=== PATIENT | female | born 1960 | race Caucasian/White ===

== ENCOUNTER 2016-05-24 14:04 | Emergency (ER) | payer BC ==
--- NOTE | 2016-05-24 14:39 | ED ---
General Adult HPI - General Chief complaint: Head Injury Stated complaint: Fall/Head injury Time Seen by Provider: 05/24/16 14:29 Source: patient, RN notes reviewed Mode of arrival: ambulatory Limitations: no limitations - History of Present Illness Initial comments: This is a 56 old female who presents after a fall that happened around 11 PM. Patient states she was intoxicated and tripped in her kitchen landing on her face. Patient reported some increased swelling and an abrasion to the forehead after the fall. Patient denies any loss of consciousness. Patient states she woke up the next morning with some nausea but thought it was from the alcohol the previous night before. Patient states the nausea has persisted with a mild headache over the weekend into today. Patient also reports some dizziness today. Patient describes dizziness as room spinning and mostly happens with head movements. Rest makes the dizziness better. Patient has a history of vertigo. Patient states she always has some degree of nausea but was concerned due to head injury. 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 Patient noticed some bruising around the right eye that started on Tuesday. Patient denies any pain with extraocular movements or eye pain. Patient has been ambulating without difficulty. Patient states she has chronic neck pain and is unsure if it is worse. Patient denies any back pain. Patient is not on any anticoagulants. Patient denies any recent fever, chills, shortness breath, chest pain, abdominal pain, nausea/vomiting/diarrhea, numbness, tingling, hematuria, or visual changes, or any other complaints. - Related Data Previous Rx's Medication Instructions Recorded Hydrocodone/Acetaminophen [[place] 1 each PO Q6HR PRN #20 tab 07/27/14 5-325] Allergies Allergy/AdvReac Type Severity Reaction Status Date / Time No Known Allergies Allergy Verified 05/24/16 14:16 Review of Systems ROS Statement: Those systems with pertinent positive or pertinent negative responses have been documented in the HPI. ROS Other: All systems not noted in ROS Statement are negative. Past Medical History Past Medical History: No Reported History History of Any Multi-Drug Resistant Organisms: None Reported Past Surgical History: Appendectomy, Uterine Ablation Additional Past Surgical History / Comment(s): bowel resection, Past Psychological History: No Psychological Hx Reported Smoking Status: Never smoker Past Alcohol Use History: None Reported Past Drug Use History: None Reported General Exam - General Exam Comments Initial Comments: General: The patient is awake and alert, in no distress, and does not appear acutely ill. Eye: There is some mild ecchymosis surrounding the right eye that is tender to palpation along the lower aspect of the orbit and to the lateral aspect of the nose. Pupils are equal, round and reactive to light, extra-ocular movements are intact. No pain with extraocular movements. No sign of entrapment. No nystagmus. There is normal conjunctiva bilaterally. No signs of icterus. Visual acuity is 20/20 in both eyes, 20/30 in the right eye and 20/25 in the left eye. Ears: TMs pink and pearly with intact cone of light bilaterally. Normal external ear canals Nose: Nasal turbinates pink and moist. No septal hematoma. Mouth and throat: There are moist mucous membranes and no oral lesions. Neck: There is mild tenderness of the cervical midline, patient reports this can be chronic for her. The neck is supple, there is no JVD. Cardiovascular: There is a regular rate and rhythm. No murmur, rub or gallop is appreciated. Respiratory: Lungs are clear to auscultation, respirations are non-labored, breath sounds are equal. No wheezes, stridor, rales, or rhonchi. Musculoskeletal: No tenderness to palpation of the thoracic or lumbar midlines. Normal ROM, no tenderness. Strength 5/5. Sensation intact. Residential Plumber strength equal bilaterally. Radial Pulses equal bilaterally 2+. Neurological: A&O x 3. CN II-XII intact, There are no obvious motor or sensory deficits. Coordination appears grossly intact. Speech is normal. Skin: There is an approximately 1 cm abrasion to the patient's middle forehead. No bruising or swelling around the area. Skin is warm and dry and no rashes or lesions are noted. Psychiatric: Cooperative, appropriate mood & affect, normal judgment. Limitations: no limitations Course Vital Signs 05/24/16 05/24/16 14:12 15:07 Temperature 97.4 F L 96.9 F L Pulse Rate 70 74 Respiratory 18 16 Rate Blood Pressure 169/79 134/70 O2 Sat by Pulse 98 100 Oximetry Medical Decision Making - Medical Decision Making This is a 56-year-old female presents after a fall that happened night while she was intoxicated. On physical exam patient is neurologically intact and ambulate without difficulty. Patient is answering all questions appropriately and accurately.There is some mild ecchymosis surrounding the right eye that is tender to palpation along the lower aspect of the orbit and to the lateral aspect of the nose. Pupils are equal, round and reactive to light, extra-ocular movements are intact. No pain with extraocular movements. No sign of entrapment. No nystagmus. There is normal conjunctiva bilaterally. No signs of icterus. Visual acuity is 20/20 in both eyes, 20/30 in the right eye and 20/25 in the left eye. Patient has some mild cervical midline tenderness. I discussed the risks and benefits of computed tomography scan. At this time patient is still having some nausea, dizziness and headache from the fall on . A CT of the brain and C-spine and facial bones: CT brain and C-spine: #1 there is no acute fracture or dislocation evident in the cervical spine. #2 no acute intracranial hemorrhage, mass effect, or midline shift seen. Additional findings above. Posterior ventricular white matter show some low attenuation possible due to demyelination. Brain MRI may be of benefit. Reported by Dr. Ayala. CT facial bones: Soft tissue edema on the right periorbital region with no acute fracture. Report by Dr. Bradford. I discussed results with patient. I discussed that patient should follow-up with her family physician for a possible outpatient brain MRI. I offered patient a prescription for Antivert due to dizziness but patient refused this stating she is feeling fine. I discussed Tylenol and or Motrin as needed for any pain. I discussed return parameters. I discussed concussion symptoms and the avoidance of activities that worsen her symptoms. Discussed that patient should follow up with PCP in one to 2 days or return to the [facility] for any worsening symptoms or for any further concerns. Patient was receptive to this plan and patient will be discharged home. I discussed his case with attending physician Dr. Redman who agrees the plan as stated above. Disposition Clinical Impression: Head injury Disposition: HOME SELF-CARE Condition: Good Instructions: Concussion (ED) Additional Instructions: Please use [id number] Tylenol and Motrin as needed for any pain. Please follow-up with your primary care physician for an outpatient MRI of the brain. Please return to the [facility] for any worsening symptoms or for any further concerns. Referrals: Jose Alberto Jain III, MD [Primary Care Provider] - 1-2 days Time of Disposition: 15:42
[2016-05-24 15:08] VITALS: BP 134/70; PULSE 74; RESP 16; TEMP 96.9
--- NOTE | 2016-05-24 15:20 | CT ---
EXAMINATION TYPE: CT brain aveine wo con DATE OF EXAM: 05/24/2016 2:59 PM COMPARISON: NONE HISTORY: Pt fell x4 days ago, swelling to right orbital area. CT DLP: 1956.4 mGycm Automated exposure control for dose reduction was used. TECHNIQUE: CT scan of the head and cervical spine are performed without contrast. FINDINGS: There is no acute intracranial hemorrhage, mass effect, or midline shift identified. The ventricles and sulci are within normal limits in size. Periventricular white matter shows some low a ttenuation possibly due to demyelination. The globes are intact and the visualized sinuses are clear. Cervical spine is visualized in its entirety from C1 through upper thoracic levels and demonstrates s atisfactory alignment without evidence of acute fracture or dislocation. Prevertebral soft tissue ap pears within normal limits. The C1-C2 articulation is unremarkable. IMPRESSION: 1. There is no acute fracture or dislocation evident in the cervical spine. 2. No acute intracranial hemorrhage, mass effect, or midline shift is seen. Additional findings above . Brain MRI may be of benefit.
--- NOTE | 2016-05-24 15:20 | CT ---
EXAMINATION TYPE: CT facial bones wo con DATE OF EXAM: 05/24/2016 2:59 PM COMPARISON: NONE HISTORY: Pt fell x4 days ago, swelling to right orbital area. CT DLP: 1956.4 mGycm Automated exposure control for dose reduction was used. TECHNIQUE: CT scan of the sinuses is performed without contrast, axial images are obtained, coronal r eformatted images are also reviewed. FINDINGS: Exam limited by dental artifact. The paranasal sinuses including the frontal, ethmoid, sphenoid, and maxillary sinuses bilaterally ar e well-aerated without abnormal opacification. The ostiomeatal complex is patent bilaterally on the coronal images. Visualized portion of mastoid air cells show no abnormal opacification. The globes are intact bilate rally. A nasal septal deviation is seen and there are bilateral corrina bullosa greater on the right. IMPRESSION: 1. Soft tissue edema in the right periorbital region with no acute fracture.
== END 2016-05-24 15:59 | disposition home or self-care (01) ==
LOC: EC 14:04
DX: S06.0X0A Concussion without loss of consciousness, initial encounter (principal); S00.83XA Contusion of other part of head, initial encounter; R42 Dizziness and giddiness; M54.2 Cervicalgia; W01.0XXA Fall on same level from slipping, tripping and stumbling without subsequent striking against object, initial encounter; Y92.000 Kitchen of unspecified non-institutional (private) residence as the place of occurrence of the external cause
CPT/HCPCS: 70450; 70486; 72125; 99283

== ENCOUNTER → 2016-06-15 | Outpatient (CLI) | payer BC ==
--- NOTE | 2016-06-15 18:18 | MR ---
EXAMINATION TYPE: MR brain wo con DATE OF EXAM: 06/15/2016 2:18 PM COMPARISON: CT brain 05/24/2016 HISTORY: abnormal ct, f/u CONTRAST: Performed utilizing 0 mL intravenous MultiHance gadolinium contrast. TECHNIQUE: Multiplanar, multiecho imaging on a 3.0 Racheal magnet is performed through the brain. Stud y is performed within 24 hours of arrival to the hospital. The craniovertebral junction is normal. The pituitary is normal. Diffusion-weighted imaging is performed. No abnormal hyperintensity is present to suggest an acute i ntracranial infarct or acute ischemic change. Periventricular white matter hyperintensity is present . Scattered punctate white matter changes are present. A larger focal plaque measuring 1.6 x 1.7 cm adjacent to the anterior horn left lateral vent ricle. Findings were present previously. Post trauma sequences are performed. No suspicious area for hemorrhage is evident. Ventricles and sulci are appropriate for the patient age. IMPRESSIONS: 1. Chronic appearing white matter ischemic changes, stable from prior CT
== END | disposition home or self-care (01) ==
LOC: RADMRIMAIN 13:31
PROVIDERS: ATTEND Nurse Practitioner Family
DX: R90.82 White matter disease, unspecified (principal); I67.82 Cerebral ischemia
CPT/HCPCS: 70551

== ENCOUNTER → 2016-10-25 | Outpatient (CLI) | payer BC ==
[2016-10-25 09:59] LABS: Basophils # (A) 0.1 k/uL (0-0.2); Basophils % (A) 1 %; CH 32.7; CHCM 34.4; Eosinophils # (A) 0.1 k/uL (0-0.7); Eosinophils % (A) 2 %; HCT 39.2 % (34.0-46.0); HDW 2.25; HGB 13.5 gm/dL (11.4-16.0); Luc # (Auto) 0.07; Luc % (Auto) 2; Lymphocytes # (A) 1.9 k/uL (1.0-4.8); Lymphocytes % (A) 39 %; MCH 32.9 pg (25.0-35.0); MCHC 34.5 g/dL (31.0-37.0); MCV 95.2 fL (80.0-100.0); Mean Platelet Volume 7.6; Monocytes # (A) 0.3 k/uL (0-1.0); Monocytes % (A) 6 %; Neutrophils # (A) 2.5 k/uL (1.3-7.7); Neutrophils % (A) 51 %; RBC 4.11 m/uL (3.80-5.40); RDW 12.3 % (11.5-15.5); WBC 4.9 k/uL (3.8-10.6); WBC (Perox) 5.35
[2016-10-25 20:24] LABS: Appearance,CSF Clear
== END | disposition home or self-care (01) ==
LOC: LABWHC1 09:31
PROVIDERS: ATTEND Physician Assistant
DX: R90.82 White matter disease, unspecified (principal)
CPT/HCPCS: 36415; 82040; 82042; 82306; 82784; 83873; 83916; 84157; 85025; 87476; 89050

== ENCOUNTER → 2016-12-27 | Outpatient (CLI) | payer BC ==
[2016-12-27 19:19] LABS: Blood Urea Nitrogen 22 mg/dL (7-17); Non-African American GFR(MDRD) 58 (>60 ml/min/1.73 sqM)
--- NOTE | 2016-12-27 23:18 | MR ---
EXAMINATION TYPE: MR brain/cspine wo/w DATE OF EXAM: 12/27/2016 COMPARISON: Prior MRI brain June 15, 2016. Prior CT cervical spine May 24, 2016. HISTORY: Headaches, dizziness, neck pain, checking for MS TECHNIQUE: Multiplanar, multisequence images of the cervical spine, brain, and brainstem are all performed with out and with IV contrast, utilizing 6.5 mL intravenous Gadavist gadolinium contrast is administered i ntravenously. Demyelinating disease protocol with additional Sagittal Flair sequence performed of th e brain and brainstem and PD sagittal sequence of cervical spine acquired.. FINDINGS: BRAIN: T2 Lesions Present : Yes Approximate Number of Lesions: Approximately 30 Locations Identified : Most prominent deep and periventricular levels Size of Reference Lesion(s): 1. 1.7 cm x 1.4 cm x 1.5 cm on axial image 21 and sagittal image 10 left frontal centrum semioval pe riventricular lesion stable. Enhancing Lesion(s) Present: No Change from Prior: Stable Diffusion weighted images demonstrate no evidence of a recent infarct or other diffusion abnormality. There is no worrisome extra-axial fluid collection. The ventricular system and cisternal spaces ar e normal in size and appearance. The brain volume is age appropriate. Midline structures demonstrate normal morphology. The craniocervical junction appears within normal limits. Post contrast images demonstrate no abnormal enhancement. The dural venous sinuses appear pa tent. The visualized sinuses are clear and the globes are intact. IMPRESSION: Fairly moderate nonspecific white matter changes may be on basis of multiple sclerosis am tami possible broad differential. No new or enhancing lesions are clearly seen. C-SPINE: FINDINGS: Sagittal images of the cervical spine show the craniocervical junction to appear within nor mal limits. The cervical and upper thoracic spinal cord is normal in course, caliber, and signal. V ertebral alignment is anatomic. There is mild disc space narrowing posteriorly at C4-C5 level otherwi se the vertebral body and intravertebral disk heights are normal. There are small posterior disc her niation at C4-C5 level on sagittal images. The bone marrow signal intensity is within normal limits. No abnormal postcontrast enhancement is seen. Minimal multilevel anterior spurring is redemonstrated. No suspicious postcontrast enhancement is seen. Axial images show the a C2-C3 level to appear within normal limits. Axial images at C3-C4 level show right paracentral disc protrusion and uncovertebral facet degenerati ve changes bilaterally, there is mild right greater than left bilateral neural foraminal narrowing an d minimal effacement of anterior lateral thecal sac on axial image 37. Axial images at C4-C5 level show more lobulated broad-based posterior disc protrusion effacing anteri or thecal sac and causing mild to moderate bilateral neural foraminal narrowing. Axial images at C5-C6 level, C6-C7, C7-T1 levels are felt within normal limits. There is 4 mm left thyroid nodule on axial image 1 incidentally noted. IMPRESSION: No abnormal cord signal in the cervical spine. Some degenerative changes at C3-C4 and C4- C5 level are seen as detailed above.
== END | disposition home or self-care (01) ==
LOC: RADMRIMAIN 18:40
PROVIDERS: ATTEND Physician Assistant
DX: M47.812 Spondylosis without myelopathy or radiculopathy, cervical region (principal); R90.89 Other abnormal findings on diagnostic imaging of central nervous system; Z01.812 Encounter for preprocedural laboratory examination
CPT/HCPCS: 82565; 84520; 70553; 72156; 36415; A9581

== ENCOUNTER → 2018-03-29 | Outpatient (CLI) | payer BC ==
--- NOTE | 2018-03-29 09:18 | MM ---
Reason for exam: clinical finding. Last mammogram was performed 13 years and 8 months ago. Indicated problem(s): lump or thickening in the right breast. Physical Findings: Nurse did not find any significant physical abnormalities on exam. MG 3D Diag Mammo W/Cad LILY Bilateral CC and MLO view(s) were taken. Prior study comparison: July 30, 2004, bilateral screening mammogram. June 14, 2003, bilateral screening mammogram. The breast tissue is extremely dense which could obscure a lesion on mammography. There is no discrete abnormality. These results were verbally communicated with the patient and result sheet given to the patient on 03/29/18. ASSESSMENT: Incomplete: need additional imaging evaluation, BI-RAD 0 RECOMMENDATION: Ultrasound of the right breast. (palpable by patient)
--- NOTE | 2018-03-29 09:20 | USB ---
Reason for exam: additional evaluation requested from abnormal screening. US Breast Limited RT Right limited breast ultrasound including focal area of concern, retroareolar and axilla demonstrates no cystic or solid lesion seen. These results were verbally communicated with the patient and result sheet given to the patient on 03/29/18. ASSESSMENT: Negative, BI-RAD 1 RECOMMENDATION: Routine screening mammogram of both breasts in 1 year. Manage patient on a clinical basis.
== END ==
LOC: RADMAMWWP 08:04
PROVIDERS: ATTEND Obstetrics & Gynecology
DX: N63.10 Unspecified lump in the right breast, unspecified quadrant (principal); N63.20 Unspecified lump in the left breast, unspecified quadrant; R92.8 Other abnormal and inconclusive findings on diagnostic imaging of breast
CPT/HCPCS: 77062; 77066

== ENCOUNTER → 2018-07-27 | Outpatient (CLI) | payer BC ==
--- NOTE | 2018-07-28 07:30 | MR ---
EXAMINATION TYPE: MR brain wo/w con DATE OF EXAM: 07/27/2018 COMPARISON: CT brain 05/24/2016 HISTORY: dizziness and giddiness CONTRAST: Performed utilizing 7 mL intravenous Gadavist gadolinium contrast. TECHNIQUE: Multiplanar, multiecho imaging on a 3.0 Racheal magnet is performed through the brain. Stud y is performed within 24 hours of arrival to the hospital. The craniovertebral junction is normal. The pituitary is normal. Diffusion-weighted imaging is performed. No abnormal hyperintensity is present to suggest an acute i ntracranial infarct or acute ischemic change. There are multiple scattered areas of hyperintensity on T2 and inversion recovery weighted sequences. The largest white matter change is in the left frontal lobe adjacent to the anterior horn lateral marla tricle and measures approximately 1.9 x 1.5 cm x 1.6. Series 501 image 20, series 601 image 13. Multi ple additional subcortical and deep white matter hyperintensities are present. Ventricles and sulci are appropriate for the patient age. No abnormal enhancement is evident. Pituitary stalk is in the midline. Corpus callosum appears normal. Some faint increased signals withi n the brainstem on T2 and inversion recovery sequences IMPRESSIONS: 1. Findings can be compatible with, although are not diagnostic for, multiple sclerosis. Differential diagnosis would include microvascular ischemic change, Lyme disease, vasculitis. 2. No suspicious acute areas of gliosis are identified.
== END | disposition home or self-care (01) ==
LOC: RADMRIMAIN 15:04
PROVIDERS: ATTEND Family Medicine
DX: R42 Dizziness and giddiness (principal); A88.1 Epidemic vertigo; R90.82 White matter disease, unspecified
CPT/HCPCS: 70553; A9585

== ENCOUNTER 2018-08-14 12:53 | Inpatient (IN) | payer BC ==
[2018-08-14] MEDS ORDERED: SODIUM CHLORIDE 0.9% 1,000 ML IV STA (13:37)
--- NOTE | 2018-08-14 13:37 | ED ---
Dizziness HPI - General Chief Complaint: Syncope Stated Complaint: vision problem, tingling, dizziness Time Seen by Provider: 08/14/18 13:26 Source: patient, family, RN notes reviewed, old records reviewed Mode of arrival: ambulatory Limitations: no limitations - History of Present Illness Initial Comments: This is a 58-year-old female the ER for evaluation. She presents today for evaluation regards to neurological complaint. Patient does have significant neurological complaint currently. His main neuro complaints resolve around blurry vision difficulty vision dizziness lightheadedness and bilateral upper extremity weakness and heaviness. Patient has history of similar complaint possibly going out for diagnosis of MS. MD Complaint: dizziness, lightheadedness, difficulty walking -: minutes(s) Timing: sudden onset Description: "room spinning", lightheadedness History of Same: Yes History of Trauma: No Severity: moderate Improves With: nothing Worsens With: nothing - Related Data Home Medications Medication Instructions Recorded Confirmed ALPRAZolam [Xanax] 0.5 mg PO DAILY PRN 08/14/18 08/14/18 Acetaminophen [Tylenol Arthritis] 1,300 mg PO Q12H PRN 08/14/18 08/14/18 Cholecalciferol [Vitamin D3 (25 1,000 unit PO DAILY 08/14/18 08/14/18 Mcg = 1000 Iu)] DULoxetine HCL [Cymbalta] 30 mg PO BID 08/14/18 08/14/18 Ranitidine HCl [Zantac] 150 mg PO DAILY 08/14/18 08/14/18 amLODIPine [Norvasc] 2.5 mg PO DAILY 08/14/18 08/14/18 Allergies Allergy/AdvReac Type Severity Reaction Status Date / Time No Known Allergies Allergy Verified 08/14/18 13:49 Review of Systems ROS Statement: Those systems with pertinent positive or pertinent negative responses have been documented in the HPI. ROS Other: All systems not noted in ROS Statement are negative. Past Medical History Past Medical History: No Reported History History of Any Multi-Drug Resistant Organisms: None Reported Past Surgical History: Appendectomy, Uterine Ablation Additional Past Surgical History / Comment(s): bowel resection, Past Psychological History: No Psychological Hx Reported Smoking Status: Never smoker Past Alcohol Use History: None Reported Past Drug Use History: None Reported General Exam - General Exam Comments Initial Comments: NIH of 0 Limitations: no limitations General appearance: alert, in no apparent distress Head exam: Present: atraumatic, normocephalic, normal inspection Eye exam: Present: normal appearance, PERRL, EOMI. Absent: scleral icterus, conjunctival injection, periorbital swelling ENT exam: Present: normal exam, mucous membranes moist Neck exam: Present: normal inspection. Absent: tenderness, meningismus, lymphadenopathy Respiratory exam: Present: normal lung sounds bilaterally. Absent: respiratory distress, wheezes, rales, rhonchi, stridor Cardiovascular Exam: Present: regular rate, normal rhythm, normal heart sounds. Absent: systolic murmur, diastolic murmur, rubs, gallop, clicks GI/Abdominal exam: Present: soft, normal bowel sounds. Absent: distended, tenderness, guarding, rebound, rigid Extremities exam: Present: normal inspection, full ROM, normal capillary refill. Absent: tenderness, pedal edema, joint swelling, calf tenderness Back exam: Present: normal inspection Neurological exam: Present: alert, oriented X3, CN II-XII intact Psychiatric exam: Present: normal affect, normal mood Skin exam: Present: warm, dry, intact, normal color. Absent: rash Course Vital Signs 08/14/18 08/14/18 08/14/18 12:58 14:15 16:00 Temperature 98.4 F 98.1 F Pulse Rate 69 66 67 Respiratory 18 16 16 Rate Blood Pressure 167/78 166/84 134/67 O2 Sat by Pulse 100 97 96 Oximetry - Reevaluation(s) Reevaluation #1: 08/14/18 16:42 Medical record is reviewed include prior MRIs Reevaluation #2: 08/14/18 16:42 Patient will admit for neurological evaluation EKG Findings - EKG Comments: EKG Findings:: EKG shows sinus rhythm at 65, VA 1:30, QRS 90, QTc 468 Medical Decision Making - Medical Decision Making 58 male the ER for evaluation presented for evaluation of neurological evaluation. Patient will admit for neurology. - Lab Data Result diagrams: 08/14/18 14:10 08/14/18 14:10 Lab Results 08/14/18 08/14/18 08/14/18 Range/Units 14:10 14:10 14:10 WBC (3.8-10.6) k/uL RBC (3.80-5.40) m/uL Hgb (11.4-16.0) gm/dL Hct (34.0-46.0) % MCV (80.0-100.0) fL MCH (25.0-35.0) pg MCHC (31.0-37.0) g/dL RDW (11.5-15.5) % Plt Count (150-450) k/uL Neutrophils % % Lymphocytes % % Monocytes % % Eosinophils % % Basophils % % Neutrophils # (1.3-7.7) k/uL Lymphocytes # (1.0-4.8) k/uL Monocytes # (0-1.0) k/uL Eosinophils # (0-0.7) k/uL Basophils # (0-0.2) k/uL D-Dimer 0.30 (<0.60) mg/L FEU Sodium 140 (137-145) mmol/L Potassium 3.3 L (3.5-5.1) mmol/L Chloride 105 (98-107) mmol/L Carbon Dioxide 27 (22-30) mmol/L Anion Gap 8 mmol/L BUN 16 (7-17) mg/dL Creatinine 0.73 (0.52-1.04) mg/dL Est GFR (CKD-EPI)AfAm >90 (>60 ml/min/1.73 sqM) Est GFR (CKD-EPI)NonAf >90 (>60 ml/min/1.73 sqM) Glucose 91 (74-99) mg/dL Calcium 9.8 (8.4-10.2) mg/dL Phosphorus 2.8 (2.5-4.5) mg/dL Magnesium 2.0 (1.6-2.3) mg/dL Total Bilirubin 0.7 (0.2-1.3) mg/dL AST 80 H (14-36) U/L ALT 82 H (9-52) U/L Alkaline Phosphatase 101 (38-126) U/L Troponin I (0.000-0.034) ng/mL NT-Pro-B Natriuret Pep 223 pg/mL Total Protein 7.8 (6.3-8.2) g/dL Albumin 4.8 (3.5-5.0) g/dL TSH 1.040 (0.465-4.680) mIU/L 08/14/18 08/14/18 Range/Units 14:10 14:10 WBC 5.3 (3.8-10.6) k/uL RBC 4.17 (3.80-5.40) m/uL Hgb 13.5 (11.4-16.0) gm/dL Hct 39.4 (34.0-46.0) % MCV 94.4 (80.0-100.0) fL MCH 32.5 (25.0-35.0) pg MCHC 34.4 (31.0-37.0) g/dL RDW 12.6 (11.5-15.5) % Plt Count 301 (150-450) k/uL Neutrophils % 57 % Lymphocytes % 35 % Monocytes % 5 % Eosinophils % 1 % Basophils % 1 % Neutrophils # 3.0 (1.3-7.7) k/uL Lymphocytes # 1.8 (1.0-4.8) k/uL Monocytes # 0.2 (0-1.0) k/uL Eosinophils # 0.1 (0-0.7) k/uL Basophils # 0.0 (0-0.2) k/uL D-Dimer (<0.60) mg/L FEU Sodium (137-145) mmol/L Potassium (3.5-5.1) mmol/L Chloride (98-107) mmol/L Carbon Dioxide (22-30) mmol/L Anion Gap mmol/L BUN (7-17) mg/dL Creatinine (0.52-1.04) mg/dL Est GFR (CKD-EPI)AfAm (>60 ml/min/1.73 sqM) Est GFR (CKD-EPI)NonAf (>60 ml/min/1.73 sqM) Glucose (74-99) mg/dL Calcium (8.4-10.2) mg/dL Phosphorus (2.5-4.5) mg/dL Magnesium (1.6-2.3) mg/dL Total Bilirubin (0.2-1.3) mg/dL AST (14-36) U/L ALT (9-52) U/L Alkaline Phosphatase (38-126) U/L Troponin I <0.012 (0.000-0.034) ng/mL NT-Pro-B Natriuret Pep pg/mL Total Protein (6.3-8.2) g/dL Albumin (3.5-5.0) g/dL TSH (0.465-4.680) mIU/L Disposition Clinical Impression: Multiple sclerosis Disposition: ADMITTED IP TO THIS HOSP Condition: Good Is patient prescribed a controlled substance at d/c from ED?: No
[2018-08-14 14:26] LABS: Basophils % (A) 1 %; Eosinophils # (A) 0.1 k/uL (0-0.7); Eosinophils % (A) 1 %; HCT 39.4 % (34.0-46.0); HGB 13.5 gm/dL (11.4-16.0); Lymphocytes # (A) 1.8 k/uL (1.0-4.8); Lymphocytes % (A) 35 %; MCH 32.5 pg (25.0-35.0); MCHC 34.4 g/dL (31.0-37.0); MCV 94.4 fL (80.0-100.0); Mean Platelet Volume 7.8; Monocytes # (A) 0.2 k/uL (0-1.0); Monocytes % (A) 5 %; Neutrophils % (A) 57 %; Platelet Count 301 k/uL (150-450); RBC 4.17 m/uL (3.80-5.40); RDW 12.6 % (11.5-15.5); WBC 5.3 k/uL (3.8-10.6)
[2018-08-14 14:38] LABS: ALT 82 U/L (9-52); AST 80 U/L (14-36); Albumin 4.8 g/dL (3.5-5.0); Alkaline Phosphatase 101 U/L (38-126); Anion Gap 8 mmol/L; Blood Urea Nitrogen 16 mg/dL (7-17); Calcium 9.8 mg/dL (8.4-10.2); Carbon Dioxide 27 mmol/L (22-30); Chloride 105 mmol/L (98-107); Glucose 91 mg/dL (74-99); Phosphorus 2.8 mg/dL (2.5-4.5); Potassium 3.3 mmol/L (3.5-5.1); Sodium 140 mmol/L (137-145); Total Bilirubin 0.7 mg/dL (0.2-1.3); Total Protein 7.8 g/dL (6.3-8.2)
[2018-08-14] MEDS ORDERED: POTASSIUM BICARBONATE/CIT AC 20 MEQ TABLET.EFF PO ONE (14:50)
[2018-08-14] MEDS ORDERED: DEXAMETHASONE SOD PHOSPHATE 10 MG/ML 1 ML VIAL IV STA (16:08)
[2018-08-14] MEDS ORDERED: ACETAMINOPHEN TAB 325 MG TAB PO PRN (16:59)
[2018-08-14] MEDS ORDERED: ALPRAZolam 0.5 MG TAB PO PRN (16:59)
[2018-08-14] MEDS ORDERED: HYDROcodone/APAP 5-325MG 1 EACH TAB PO PRN (17:00)
[2018-08-14] MEDS ORDERED: TEMAZEPAM 15 MG CAP PO PRN (17:00)
[2018-08-14] MEDS: SODIUM CHLORIDE 0.9% 1,000 ML IV SCH (17:04)
--- NOTE | 2018-08-14 17:51 | P.CNNES ---
History of Present Illness Consult date: 08/14/18 Reason for Consult: MS Chief complaint: Dizziness, numbness tingling, history of possible MS History of Present Illness: Patient is a 58-year-old female who states that her neurological symptoms started in May 2016 after she suffered from a fall, head computed tomography scan of the head, which showed some lesions. She had an MRI of the brain performed at that time, which revealed multiple nonenhancing lesions in the brain. Multiple sclerosis is suspected. Patient underwent lumbar puncture, on 10/25/2016 in which her oligoclonal bands were negative, IgG index and synthesis rate were negative. Total protein was 51 which is normal (12-60), WBC and RBC 0 each. Myelin basic protein was normal <2.0. Lyme titer negative. MRI of the cervical spine was normal. Patient was otherwise doing fine, until 6 months ago, when she started having some Utoff phenomena, with noticing paresthesias in the feet whenever she would take a hot bath. 1-1/2 months ago, she got very dizzy and after that her hands were tingling. She felt confused at times. Her ears were ringing. She was followed up with her neurologist, who performed another MRI of the brain with and without contrast on 07/27/2018, in which additional scattered areas of white matter changes may be slightly greater in the subcortical region on the right and within the basal ganglia on. Periventricular white matter changes may have slight progression over the 2 year interval. Patient has not been formally diagnosed with MS. She has not tried any disease modifying agents. Patient states today she was coming and driving to [place], when she got dizzy, felt her eyes were crossed. She pulled over, sat there and symptoms improved. She had a feeling that she was "not there", felt confused. She decided to come to the ER. While she was walking to the ER, she felt as if she was drunk although she has not drank alcohol. She was feeling very dizzy. Patient has hypertension, denies diabetes, never smoker. Patient's blood tests shows normal sodium, potassium is 3.3. Liver functions are elevated with AST 80, AST 82, TSH is normal.. Review of Systems Positive for tinnitus, confusion, dizziness. Constitutional: Reports as per HPI, Denies fever, Denies weakness Eyes: bilateral loss of vision Past Medical History Past Medical History: No Reported History History of Any Multi-Drug Resistant Organisms: None Reported Past Surgical History: Appendectomy, Uterine Ablation Additional Past Surgical History / Comment(s): bowel resection, Past Psychological History: No Psychological Hx Reported Smoking Status: Never smoker Past Alcohol Use History: None Reported Past Drug Use History: None Reported Medications and Allergies Home Medications Medication Instructions Recorded Confirmed Type ALPRAZolam [Xanax] 0.5 mg PO DAILY PRN 08/14/18 08/14/18 History Acetaminophen [Tylenol Arthritis] 1,300 mg PO Q12H PRN 08/14/18 08/14/18 History Cholecalciferol [Vitamin D3 (25 1,000 unit PO DAILY 08/14/18 08/14/18 History Mcg = 1000 Iu)] DULoxetine HCL [Cymbalta] 30 mg PO BID 08/14/18 08/14/18 History Ranitidine HCl [Zantac] 150 mg PO DAILY 08/14/18 08/14/18 History amLODIPine [Norvasc] 2.5 mg PO DAILY 08/14/18 08/14/18 History Allergies Allergy/AdvReac Type Severity Reaction Status Date / Time No Known Allergies Allergy Verified 08/14/18 13:49 Physical Examination - Vital Signs Vital Signs: Vital Signs Temp Pulse Resp BP Pulse Ox 08/14/18 16:57 73 16 154/84 100 08/14/18 16:00 67 16 134/67 96 08/14/18 14:15 98.1 F 66 16 166/84 97 08/14/18 12:58 98.4 F 69 18 167/78 100 Intake and Output 08/14/18 08/14/18 08/14/18 06:59 14:59 22:59 Other: Weight 65.317 kg On examination patient is a middle aged female, in no distress. Her mental status speech and language functions are normal. On cranial nerve examination her pupils are round and reactive to light. Visual chung are full on confrontation. Extraocular muscles are intact. Face is symmetric and tongue protrudes to the midline. Palatal elevation normal. On muscle strength testing there is no pronator drift and the strength is normal in arms and legs. Reflexes are 1 in the upper limbs, 2+ to 3 at the knees, 2 at the right ankle but on left. Plantar is possible flat on the right, up on left. No ataxia for finger to nose or heel to interiano testing. Tone and bulk of muscles normal. Sensations are equivocal with no neglect. Gait deferred. Results - Laboratory Findings CBC and BMP: 08/14/18 14:10 08/14/18 14:10 Abnormal Lab Findings: Abnormal Labs 08/14/18 14:10 Potassium 3.3 L AST 80 H ALT 82 H Assessment and Plan Assessment: Probable MS exacerbation. Elevated liver function tests. Plan: Suggest Solu-Medrol 1 g IV PB daily for 5 days. Patient is to follow up with her neurologist about starting disease modifying agent for probable relapsing remitting MS. May need to check on the cause of elevated liver functions.
[2018-08-14 18:21] LABS: Glucose,Whole Blood 157 mg/dL (75-99)
[2018-08-14] MEDS: INSULIN ASPART (NovoLOG) 100 UNIT/ML VIAL SQ SCH ×2 (18:24→21:28)
[2018-08-14] MEDS: methylPREDNISolone SOD SUCC 1,000 MG in SODIUM CHLORIDE 0.9% 250 ML IVPB SCH (19:50)
[2018-08-14 20:11] LABS: Glucose,Whole Blood 148 mg/dL (75-99)
[2018-08-14] MEDS: HEPARIN SODIUM,PORCINE 5,000 UNIT/ML 1 ML VIAL SQ SCH (21:29)
[2018-08-14] MEDS: DULoxetine HCL 30 MG CAPSULE.DR PO SCH (21:29)
[2018-08-14] MEDS ORDERED: DEXAMETHASONE SOD PHOSPHATE 4 MG/ML 1 ML VIAL IV SCH (22:00)
[2018-08-14 23:19] LABS: Appearance,Urine Clear (Clear); Bilirubin,Urine Negative (Negative); Blood,Urine Negative (Negative); Color,Urine Light Yellow; Glucose,Urine (UA) Negative (Negative); Ketones,Urine Negative (Negative); Leukocyte Esterase,Urine Negative (Negative); Nitrite,Urine Negative (Negative); Protein,Urine Trace (Negative); Specific Gravity,Urine 1.013 (1.001-1.035); Urobilinogen,Urine <2.0 mg/dL (<2.0)
--- NOTE | 2018-08-15 05:03 | HP ---
HISTORY AND PHYSICAL DATE OF SERVICE: 08/14/2018 CHIEF COMPLAINT: Weakness, syncope, dizziness. HISTORY OF PRESENT ILLNESS: This 58-year-old woman with a past medical history of multiple medical problems including history of appendectomy, history of uterine ablation, being followed by Dr. Cox and as well as Dr. Jain in the outpatient setting. The patient was recently worked up for multiple sclerosis from Dr. Cox's office. The patient today was driving. Patient felt dizzy. The patient also had some complaints of some pain, numbness and tingling and the patient came to [facility] admitted for further evaluation and treatment. The patient has some paresthesias. The patient also had multiple MRI scans and the most recent brain MRI available done July 27 and showed evidence of white matter changes and possibly changes of demyelination and Dr. Middleton from the has seen the patient. Patient started on IV steroids. There is no history of fever, rigors. No headache, loss of consciousness, or seizures. PAST MEDICAL HISTORY: History of appendectomy, uterine ablation, history of bowel resection. MEDICATIONS: Prior to admission include home medications are: 1. Norvasc 2.5 mg p.o. daily. 2. Zantac 150 mg p.o. daily. 3. Cymbalta 30 mg p.o. b.i.d. 4. Vitamin D3 1000 daily. 5. Tylenol 339 mg p.o. b.i.d. 6. Xanax 0.5 daily p.r.n. ALLERGIES: None. FAMILY HISTORY: No history of heart disease or strokes in the family. SOCIAL HISTORY: No history of smoking. No alcohol. REVIEW OF SYSTEMS: ENT: No diminished hearing or vision. CARDIOVASCULAR: No angina or palpitations. RESPIRATORY: As mentioned earlier. GI no nausea or vomiting. no dysuria. CENTRAL NERVOUS SYSTEM: No numbness or weakness. ALLERGY/IMMUNOLOGY: No asthma or hayfever. MUSCULOSKELETAL as mentioned earlier. HEMATOLOGY/ONCOLOGY: No history of anemia. ENDOCRINE: No history of diabetes or hypothyroidism. CONSTITUTIONAL: As mentioned earlier. Dermatology: Negative. Rheumatology: Negative. PSYCHIATRY: As mentioned earlier. PHYSICAL EXAM: Patient is alert, oriented x3. The pulse is 77, blood pressure 171/77, respirations 18, temp 98.2, pulse ox 97% on room air. HEENT: Conjunctivae normal. Oral mucosa moist. NECK is no jugular venous distention. No carotid bruit. No lymph node enlargement. CARDIOVASCULAR: S1, S2 muffled. RESPIRATORY: Breath sounds diminished in the bases. No rhonchi. No crackles. ABDOMEN: Soft, nontender. No mass palpable. LEGS: No edema. No swelling. NERVOUS SYSTEM: Higher functions as mentioned earlier. Moves all 4 limbs. Mild diffuse weakness. SKIN: No ulcer, rash, bleeding. JOINTS: No active deforming arthropathy. LABS: WBC 5.2, hemoglobin 13.2 sodium 140, potassium 3.3, AST is 80, ALT is 82, blood sugar 148. ASSESSMENT: 1. Numbness, weakness, dizziness, possibly acute multiple sclerosis acute exacerbation. 2. Hypokalemia. 3. Increased AST/ ALT. 4. Increased random blood sugar possibly secondary to steroids. 5. History of appendectomy. 6. History of uterine ablation. 7. History of bowel resection. RECOMMENDATIONS AND DISCUSSION: In this 58-year-old woman who presented with multiple complex issues, we will monitor the patient closely. Continue the current management. At this time I recommend continue with IV steroids as recommended by Neurology. The patient will be given 1000 mg daily for 5 days and I would also recommend DVT prophylaxis. Monitor blood sugars closely. We will follow. Repeat labs will be ordered. LFTs will be repeated and avoid hepatotoxic medications. Copy of dictation being forwarded to Dr. Jain who is the primary physician. ZAKI / NICHOL: [id number] /
[2018-08-15] MEDS: SODIUM CHLORIDE 0.9% 1,000 ML IV SCH ×3 (06:02→22:20)
[2018-08-15] MEDS: PANTOPRAZOLE 40 MG TABLET PO SCH (06:58)
[2018-08-15 07:05] LABS: Glucose,Whole Blood 133 mg/dL (75-99)
[2018-08-15 07:36] LABS: Basophils # (A) 0.1 k/uL (0-0.2); Basophils % (A) 1 %; Eosinophils # (A) 0.1 k/uL (0-0.7); Eosinophils % (A) 0 %; HCT 38.1 % (34.0-46.0); HGB 12.7 gm/dL (11.4-16.0); Lymphocytes # (A) 0.7 k/uL (1.0-4.8); Lymphocytes % (A) 6 %; MCH 32.7 pg (25.0-35.0); MCHC 33.3 g/dL (31.0-37.0); MCV 98.1 fL (80.0-100.0); Mean Platelet Volume 7.2; Monocytes # (A) 0.1 k/uL (0-1.0); Monocytes % (A) 1 %; Neutrophils # (A) 10.1 k/uL (1.3-7.7); Neutrophils % (A) 92 %; Platelet Count 311 k/uL (150-450); RBC 3.88 m/uL (3.80-5.40); RDW 12.1 % (11.5-15.5)
[2018-08-15 07:54] LABS: ALT 72 U/L (9-52); AST 56 U/L (14-36); Albumin 4.3 g/dL (3.5-5.0); Alkaline Phosphatase 87 U/L (38-126); Anion Gap 8 mmol/L; Blood Urea Nitrogen 15 mg/dL (7-17); Calcium 9.7 mg/dL (8.4-10.2); Carbon Dioxide 24 mmol/L (22-30); Chloride 107 mmol/L (98-107); Cholesterol 237 mg/dL (<200); Glucose 134 mg/dL (74-99); Potassium 3.8 mmol/L (3.5-5.1); Sodium 139 mmol/L (137-145); Total Bilirubin 0.5 mg/dL (0.2-1.3); Total Protein 7.1 g/dL (6.3-8.2); Triglycerides 70 mg/dL (<150)
[2018-08-15 08:10] LABS: HDL Cholesterol 115 mg/dL (40-60); LDL Cholesterol,Calculated 108 mg/dL (0-99)
[2018-08-15] MEDS: INSULIN ASPART (NovoLOG) 100 UNIT/ML VIAL SQ SCH ×4 (08:40→22:19)
[2018-08-15] MEDS: HEPARIN SODIUM,PORCINE 5,000 UNIT/ML 1 ML VIAL SQ SCH ×2 (08:59→21:00)
[2018-08-15] MEDS: FAMOTIDINE 20 MG TAB PO SCH (09:00)
[2018-08-15] MEDS: CHOLECALCIFEROL 1,000 UNIT TAB PO SCH (09:00)
[2018-08-15] MEDS: amLODIPine 2.5 MG TAB PO SCH (09:01)
[2018-08-15] MEDS: DULoxetine HCL 30 MG CAPSULE.DR PO SCH ×2 (09:01→21:00)
[2018-08-15 11:57] LABS: Glucose,Whole Blood 165 mg/dL (75-99)
--- NOTE | 2018-08-15 14:18 | P.PN ---
Subjective Progress Note Date: 08/15/18 Patient denies any new neurological symptoms. Patient complaining of dizziness off and on. No visual symptoms. Patient tolerating Solu-Medrol very well. Objective - Vital Signs Vital signs: Vital Signs Temp 98 F 08/15/18 13:00 Pulse 81 08/15/18 13:00 Resp 16 08/15/18 13:00 BP 153/74 08/15/18 13:00 Pulse Ox 98 08/15/18 13:00 Intake & Output 08/14/18 08/15/18 08/15/18 18:59 06:59 18:59 Intake Total 1840 1450 Balance 1840 1450 Weight 65.317 kg Intake: Intake, IV Titration 1250 800 Amount Sodium Chloride 0.9% 1, 1000 800 000 ml @ 100 mls/hr IV . Q10H [facility] Rx#:[id number] methylPREDNISolone SOD 250 SUCC 1,000 mg In Sodium Chloride 0.9% 250 ml @ 125 mls/hr IVPB Q24H [facility] Rx#:[id number] Oral 590 650 Other: Voiding Method Toilet Toilet # Voids 1 3 - Exam Agent is a middle-aged female, in no distress. Her mental status, speech and language functions are normal. Muscle strength is normal. No ataxia. - Labs CBC & Chem 7: 08/15/18 07:09 08/15/18 07:09 Labs: Abnormal Lab Results - Last 24 Hours (Table) 08/14/18 08/14/18 08/14/18 Range/Units 14:10 18:20 20:04 WBC (3.8-10.6) k/uL Neutrophils # (1.3-7.7) k/uL Lymphocytes # (1.0-4.8) k/uL Potassium 3.3 L (3.5-5.1) mmol/L Glucose (74-99) mg/dL POC Glucose (mg/dL) 157 H 148 H (75-99) mg/dL AST 80 H (14-36) U/L ALT 82 H (9-52) U/L Cholesterol (<200) mg/dL LDL Cholesterol, Calc (0-99) mg/dL HDL Cholesterol (40-60) mg/dL Urine Protein (Negative) 08/14/18 08/15/18 08/15/18 Range/Units 22:00 07:01 07:09 WBC (3.8-10.6) k/uL Neutrophils # (1.3-7.7) k/uL Lymphocytes # (1.0-4.8) k/uL Potassium (3.5-5.1) mmol/L Glucose 134 H (74-99) mg/dL POC Glucose (mg/dL) 133 H (75-99) mg/dL AST 56 H (14-36) U/L ALT 72 H (9-52) U/L Cholesterol 237 H (<200) mg/dL LDL Cholesterol, Calc 108 H (0-99) mg/dL HDL Cholesterol 115 H (40-60) mg/dL Urine Protein Trace H (Negative) 08/15/18 08/15/18 Range/Units 07:09 11:56 WBC 11.0 H (3.8-10.6) k/uL Neutrophils # 10.1 H (1.3-7.7) k/uL Lymphocytes # 0.7 L (1.0-4.8) k/uL Potassium (3.5-5.1) mmol/L Glucose (74-99) mg/dL POC Glucose (mg/dL) 165 H (75-99) mg/dL AST (14-36) U/L ALT (9-52) U/L Cholesterol (<200) mg/dL LDL Cholesterol, Calc (0-99) mg/dL HDL Cholesterol (40-60) mg/dL Urine Protein (Negative) Assessment and Plan Assessment: Probable MS exacerbation. Elevated liver function tests. Plan: Suggest Solu-Medrol 1 g IV PB daily for 3-5 days. Patient is to follow up with her neurologist about starting disease modifying agent for probable relapsing remitting MS. May need to check on the cause of elevated liver functions. Will check EEG for episodes of mental confusion, rule out seizures.
[2018-08-15 17:22] LABS: Glucose,Whole Blood 161 mg/dL (75-99)
[2018-08-15] MEDS: methylPREDNISolone SOD SUCC 1,000 MG in SODIUM CHLORIDE 0.9% 250 ML IVPB SCH (18:42)
--- NOTE | 2018-08-15 18:49 | PN ---
PROGRESS NOTE DATE OF SERVICE: 08/15/2018 This 58-year-old woman was admitted with multiple sclerosis, acute exacerbation. She is on high-dose IV steroids. Patient is feeling much better. No chest pain. No palpitations. No fever. Neurology is following the patient closely. On exam, alert and oriented x3. Pulse is 81, blood pressure 133/74, respiration 16, temperature 98 degrees, pulse ox 98% on room air. HEENT: Conjunctivae normal. NECK: No jugular venous distention. CARDIOVASCULAR SYSTEM: S1, S2 muffled. RESPIRATORY SYSTEM: Breath sounds diminished at the bases. No rhonchi. No crackles. ABDOMEN: Soft, non-tender. LEGS: No edema. No swelling. NERVOUS SYSTEM: Mild diffuse weakness. LABS: WBC 11, hemoglobin 12.7. Sodium 139, potassium 3.8. AST, ALT noted. ASSESSMENT: 1. Numbness, weakness and dizziness; possibly multiple sclerosis, acute exacerbation. 2. Hypokalemia. 3. Increased AST, ALT. 4. Increased random blood sugar, possibly secondary to steroids. 5. History of appendectomy. 6. History of uterine ablation. 7. History of bowel resection. RECOMMENDATIONS AND DISCUSSION: I recommend to continue current medications, continue with the monitoring, symptomatic treatment. Continue with IV steroids. Monitor blood sugars closely. Monitor electrolytes closely. Prognosis guarded because of multiple complex medical issues. Further recommendations to follow. MMODL / IJN: [id number] /
[2018-08-15 18:50] LABS: Hepatitis A Antibody IgM Non-Reactive (Non-Reactive); Hepatitis B Core IgM Non-Reactive (Non-Reactive)
[2018-08-15 20:55] LABS: Glucose,Whole Blood 142 mg/dL (75-99)
[2018-08-15] MEDS: ACETAMINOPHEN TAB 325 MG TAB PO PRN (20:59)
[2018-08-16] MEDS: ACETAMINOPHEN TAB 325 MG TAB PO PRN ×2 (05:27→17:05)
[2018-08-16 07:03] LABS: Glucose,Whole Blood 143 mg/dL (75-99)
[2018-08-16] MEDS: INSULIN ASPART (NovoLOG) 100 UNIT/ML VIAL SQ SCH ×4 (07:22→21:05)
[2018-08-16 07:30] LABS: Basophils % (A) 0 %; Eosinophils % (A) 0 %; HCT 34.9 % (34.0-46.0); HGB 11.6 gm/dL (11.4-16.0); Lymphocytes % (A) 7 %; MCH 32.7 pg (25.0-35.0); MCHC 33.1 g/dL (31.0-37.0); MCV 98.6 fL (80.0-100.0); Mean Platelet Volume 7.3; Monocytes # (A) 0.2 k/uL (0-1.0); Monocytes % (A) 2 %; Neutrophils % (A) 91 %; Platelet Count 259 k/uL (150-450); RBC 3.54 m/uL (3.80-5.40); RDW 12.4 % (11.5-15.5); WBC 13.2 k/uL (3.8-10.6)
[2018-08-16] MEDS: amLODIPine 2.5 MG TAB PO SCH (07:43)
[2018-08-16] MEDS: SODIUM CHLORIDE 0.9% 1,000 ML IV SCH ×2 (07:43→17:08)
[2018-08-16] MEDS: PANTOPRAZOLE 40 MG TABLET PO SCH (07:43)
[2018-08-16] MEDS: FAMOTIDINE 20 MG TAB PO SCH (07:43)
[2018-08-16] MEDS: CHOLECALCIFEROL 1,000 UNIT TAB PO SCH (07:43)
[2018-08-16] MEDS: DULoxetine HCL 30 MG CAPSULE.DR PO SCH ×2 (07:44→21:05)
[2018-08-16] MEDS: HEPARIN SODIUM,PORCINE 5,000 UNIT/ML 1 ML VIAL SQ SCH ×2 (07:44→21:05)
[2018-08-16 07:50] LABS: ALT 71 U/L (9-52); AST 58 U/L (14-36); Albumin 3.8 g/dL (3.5-5.0); Alkaline Phosphatase 71 U/L (38-126); Anion Gap 7 mmol/L; Blood Urea Nitrogen 16 mg/dL (7-17); Calcium 9.2 mg/dL (8.4-10.2); Carbon Dioxide 24 mmol/L (22-30); Chloride 109 mmol/L (98-107); Glucose 136 mg/dL (74-99); Potassium 3.7 mmol/L (3.5-5.1); Sodium 140 mmol/L (137-145); Total Bilirubin 0.4 mg/dL (0.2-1.3); Total Protein 6.4 g/dL (6.3-8.2)
[2018-08-16 11:57] LABS: Glucose,Whole Blood 96 mg/dL (75-99)
--- NOTE | 2018-08-16 13:58 | EEG ---
ELECTROENCEPHALOGRAM REPORT DATE OF SERVICE: 08/15/2018 PREAMBLE: This is a 58-year-old female with diagnosis of probable MS, has episodes of mental confusion and disorientation. The study is performed to rule out any complex partial seizures. EEG FINDINGS: A routine 21 channel awake digital EEG recording was completed utilizing the 10/20 international system with bipolar and referential montages. The background consists of well-developed, well regulated, moderate amplitude activity in 9 to 10 hertz alpha. Background is posterior dominant and reactive eye opening and closing. Photic driving response was noted. Hyperventilation was not performed. Different stages of sleep were not seen. No focal or generalized epileptiform activity was seen. IMPRESSION: This is a normal awake EEG. No focal, lateralized or epileptiform activity was seen. MMALISHAL / IJN: [id number] / MTDD
[2018-08-16] MEDS: methylPREDNISolone SOD SUCC 1,000 MG in SODIUM CHLORIDE 0.9% 250 ML IVPB SCH (14:59)
--- NOTE | 2018-08-16 15:01 | P.PN ---
Subjective Progress Note Date: 08/16/18 Patient denies any new neurological symptoms. Patient complaining of dizziness only when she moves her head fast. Sometimes gets numbness and tingling in the feet, but not bad, not constant. No visual symptoms. Patient tolerating Solu- Medrol very well. Objective - Vital Signs Vital signs: Vital Signs Temp 98.3 F 08/16/18 11:48 Pulse 80 08/16/18 11:48 Resp 18 08/16/18 11:48 BP 149/80 08/16/18 11:48 Pulse Ox 98 08/16/18 11:48 Intake & Output 08/15/18 08/16/18 08/16/18 18:59 06:59 18:59 Intake Total 1450 3080 900 Balance 1450 3080 900 Intake: Intake, IV Titration 800 1350 250 Amount Sodium Chloride 0.9% 1, 800 1100 000 ml @ 100 mls/hr IV . Q10H [facility] Rx#:[id number] methylPREDNISolone SOD 250 250 SUCC 1,000 mg In Sodium Chloride 0.9% 250 ml @ 125 mls/hr IVPB Q24H [facility] Rx#:[id number] Oral 650 1730 650 Other: Voiding Method Toilet Toilet Toilet # Voids 2 2 4 - Exam Agent is a middle-aged female, in no distress. Her mental status, speech and language functions are normal. Muscle strength is normal. No ataxia. - Labs CBC & Chem 7: 08/16/18 06:53 08/16/18 06:53 Labs: Abnormal Lab Results - Last 24 Hours (Table) 08/15/18 08/15/18 08/16/18 Range/Units 17:21 20:37 06:53 WBC 13.2 H (3.8-10.6) k/uL RBC 3.54 L (3.80-5.40) m/uL Neutrophils # 12.0 H (1.3-7.7) k/uL Chloride (98-107) mmol/L Glucose (74-99) mg/dL POC Glucose (mg/dL) 161 H 142 H (75-99) mg/dL AST (14-36) U/L ALT (9-52) U/L 08/16/18 08/16/18 Range/Units 06:53 07:01 WBC (3.8-10.6) k/uL RBC (3.80-5.40) m/uL Neutrophils # (1.3-7.7) k/uL Chloride 109 H (98-107) mmol/L Glucose 136 H (74-99) mg/dL POC Glucose (mg/dL) 143 H (75-99) mg/dL AST 58 H (14-36) U/L ALT 71 H (9-52) U/L Assessment and Plan Assessment: Probable MS exacerbation. Elevated liver function tests. Plan: Continue Solu-Medrol 1 g IV PB daily for 3-5 days. Patient is to follow up with her neurologist about starting disease modifying agent for probable relapsing remitting MS. May need to check on the cause of elevated liver functions. EEG was performed yesterday, which is normal. Patient can receive rest of the Solu-Medrol treatment as an outpatient if possi ble.
--- NOTE | 2018-08-16 16:58 | PN ---
PROGRESS NOTE DATE OF SERVICE: 08/16/2018 DATE OF SERVICE: This 58-year-old woman was admitted with multiple sclerosis acute exacerbation on high- dose IV steroids. No chest pain. No palpitations. No fever. Neurology following the patient closely. EXAM: Alert and oriented times three. Pulse 80, blood pressure 114/80, respiration 18, temperature 98.2, pulse ox 98% on room air. HEENT: Conjunctivae normal. NECK: No jugular venous distention. CARDIOVASCULAR: S1, S2. RESPIRATIONS: Breath sounds diminished in the bases. No rhonchi. No crackles. ABDOMEN is soft, nontender. LEGS are no edema. No swelling. CENTRAL NERVOUS SYSTEM: Mild diffuse weakness. LABS: WBC 13.2, hemoglobin 11.6. Accu-Cheks noted. AST is 58, ALT 71. ASSESSMENT: 1. Numbness, weakness, dizziness, possibly multiple sclerosis acute exacerbation on high-dose IV steroids. 2. Hypokalemia. 3. Increased AST/ALT of undetermined origin. 4. Increased random blood sugar possibly secondary to steroids. 5. History of appendectomy. 6. History of uterine ablation. 7. History of bowel resection. RECOMMENDATIONS AND DISCUSSION: Recommend to continue current medications, continue with monitoring, symptomatic treatment. Repeat labs. Otherwise continue the high-dose IV steroids. Discussed with the hospice case manager and will closely follow with Neurology. The patient could be discharged once outpatient IV steroids or a daily dose has been arranged. Further recommendations to follow. MMODL / IJN: [id number] /
[2018-08-16 17:00] LABS: Glucose,Whole Blood 117 mg/dL (75-99)
[2018-08-16] MEDS ORDERED: ALPRAZolam 0.5 MG TAB PO PRN (19:00)
[2018-08-16 20:18] LABS: Glucose,Whole Blood 212 mg/dL (75-99)
[2018-08-16 20:45] VITALS: RESP 16
[2018-08-17] MEDS: SODIUM CHLORIDE 0.9% 1,000 ML IV SCH (04:04)
[2018-08-17 04:55] VITALS: BP 145/70; PULSE 77; TEMP 97.7
[2018-08-17 06:50] LABS: Glucose,Whole Blood 124 mg/dL (75-99)
[2018-08-17] MEDS: HEPARIN SODIUM,PORCINE 5,000 UNIT/ML 1 ML VIAL SQ SCH (07:03)
[2018-08-17] MEDS: INSULIN ASPART (NovoLOG) 100 UNIT/ML VIAL SQ SCH (07:03)
[2018-08-17] MEDS: CHOLECALCIFEROL 1,000 UNIT TAB PO SCH (07:04)
[2018-08-17] MEDS: PANTOPRAZOLE 40 MG TABLET PO SCH (07:04)
[2018-08-17] MEDS: methylPREDNISolone SOD SUCC 1,000 MG in SODIUM CHLORIDE 0.9% 250 ML IVPB SCH (07:04)
[2018-08-17] MEDS: DULoxetine HCL 30 MG CAPSULE.DR PO SCH (07:04)
[2018-08-17] MEDS: amLODIPine 2.5 MG TAB PO SCH (07:04)
[2018-08-17] MEDS: FAMOTIDINE 20 MG TAB PO SCH (07:04)
[2018-08-17 07:45] LABS: Basophils % (A) 0 %; Eosinophils % (A) 0 %; HGB 12.3 gm/dL (11.4-16.0); Lymphocytes % (A) 7 %; MCH 32.6 pg (25.0-35.0); MCHC 33.1 g/dL (31.0-37.0); MCV 98.5 fL (80.0-100.0); Mean Platelet Volume 7.8; Monocytes # (A) 0.3 k/uL (0-1.0); Monocytes % (A) 2 %; Neutrophils # (A) 12.7 k/uL (1.3-7.7); Neutrophils % (A) 90 %; Platelet Count 281 k/uL (150-450); RBC 3.76 m/uL (3.80-5.40); RDW 12.7 % (11.5-15.5)
[2018-08-17 08:02] LABS: ALT 89 U/L (9-52); AST 70 U/L (14-36); Alkaline Phosphatase 71 U/L (38-126); Anion Gap 7 mmol/L; Blood Urea Nitrogen 16 mg/dL (7-17); Carbon Dioxide 27 mmol/L (22-30); Chloride 106 mmol/L (98-107); Glucose 114 mg/dL (74-99); Potassium 3.5 mmol/L (3.5-5.1); Sodium 140 mmol/L (137-145); Total Bilirubin 0.4 mg/dL (0.2-1.3); Total Protein 6.7 g/dL (6.3-8.2)
--- NOTE | 2018-08-17 11:04 | P.PN ---
Subjective Progress Note Date: 08/17/18 Patient denies any new neurological symptoms. Patient states her dizziness is much improved. Numbness and tingling in the feet has resolved. No new symptoms. No visual symptoms. Patient tolerating Solu-Medrol very well. Objective - Vital Signs Vital signs: Vital Signs Temp 97.7 F 08/17/18 04:54 Pulse 77 08/17/18 04:54 Resp 16 08/17/18 07:10 BP 145/70 08/17/18 04:54 Pulse Ox 98 08/17/18 04:54 Intake & Output 08/16/18 08/17/18 08/17/18 18:59 06:59 18:59 Intake Total 900 650 Balance 900 650 Intake: Intake, IV Titration 250 Amount methylPREDNISolone SOD 250 SUCC 1,000 mg In Sodium Chloride 0.9% 250 ml @ 125 mls/hr IVPB Q24H [facility] Rx#:[id number] Oral 650 650 Other: Voiding Method Toilet Toilet Toilet # Voids 4 1 - Exam Agent is a middle-aged female, in no distress. Her mental status, speech and language functions are normal. Pupils are round and reacting. Visual chung are full. Extraocular muscles are intact with no nystagmus. Face is symmetric and tongue protrudes to the midline. Muscle strength is normal. No ataxia. Tone and bulk of muscles normal. - Labs CBC & Chem 7: 08/17/18 07:03 08/17/18 07:03 Labs: Abnormal Lab Results - Last 24 Hours (Table) 08/16/18 08/16/18 08/17/18 Range/Units 16:58 20:17 06:50 WBC (3.8-10.6) k/uL RBC (3.80-5.40) m/uL Neutrophils # (1.3-7.7) k/uL Glucose (74-99) mg/dL POC Glucose (mg/dL) 117 H 212 H 124 H (75-99) mg/dL AST (14-36) U/L ALT (9-52) U/L 08/17/18 08/17/18 Range/Units 07:03 07:03 WBC 14.0 H (3.8-10.6) k/uL RBC 3.76 L (3.80-5.40) m/uL Neutrophils # 12.7 H (1.3-7.7) k/uL Glucose 114 H (74-99) mg/dL POC Glucose (mg/dL) (75-99) mg/dL AST 70 H (14-36) U/L ALT 89 H (9-52) U/L Assessment and Plan Assessment: Probable MS exacerbation. Elevated liver function tests. Plan: Continue Solu-Medrol 1 g IV PB daily for 3-5 days. Patient is to follow up with her neurologist about starting disease modifying agent for probable relapsing remitting MS. May need to check on the cause of elevated liver functions. EEG was normal. Patient can receive rest of the Solu-Medrol treatment as an outpatient if possible.
--- NOTE | 2018-08-19 13:19 | DS ---
DISCHARGE SUMMARY DATE OF SERVICE: 08/18/2018 FINAL DIAGNOSES: 1. Numbness, weakness, dizziness, multiple sclerosis acute exacerbation on high- dose IV steroids. 2. Hypokalemia. 3. Gait dysfunction, secondary to multiple sclerosis exacerbation. 4. Increased AST, ALT of undetermined origin. 5. Increased random blood sugar possibly secondary to steroids. 6. History of appendectomy. 7. History uterine ablation. 8. History of bowel resection. DISCHARGE DISPOSITION: The patient will be discharged in stable condition with guarded prognosis. HISTORY OF PRESENT ILLNESS: This 58-year-old woman with a past medical history of multiple medical problems admitted with multiple sclerosis acute exacerbation, treated with high-dose IV steroids that neurology recommended. Patient improved significantly. Neurology has recommended to complete a course of 5 days of steroids as an outpatient. On exam, vitals are stable. CARDIOVASCULAR: S1, S2 muffled. ABDOMEN: Soft. NERVOUS SYSTEM: no focal deficit DISCHARGE ADVICE: 1. Diet is cardiac. 2. Activity limited until followup. 3. Follow up with Dr. Jain in 2 to 3 days. 4. Follow up with Dr. Cox in one week, the patient's neurologist. MEDICATIONS ARE: 1. Cymbalta 30 mg p.o. b.i.d. 2. Norvasc 2.5 mg daily. 3. Tylenol 1300 mg p.o. daily. 4. Vitamin D3, 1000 mg p.o. daily. 5. Xanax 0.5 daily. 6. Zantac 150 mg p.o. daily. Once again, the patient will be discharged in stable condition with a guarded prognosis. MMODL / IJN: [id number] / RAUL
== END 2018-08-17 11:10 | disposition home or self-care (01) | DRG 60 ==
LOC: EC 12:53 → 3NMEDONC 16:06
PROVIDERS: ADMIT Hospitalist; ATTEND Hospitalist
DX: G35 Multiple sclerosis (principal); E87.6 Hypokalemia; I10 Essential (primary) hypertension; R73.9 Hyperglycemia, unspecified; T38.0X5A Adverse effect of glucocorticoids and synthetic analogues, initial encounter; R74.0 Nonspecific elevation of levels of transaminase and lactic acid dehydrogenase [LDH]; R26.9 Unspecified abnormalities of gait and mobility; Z90.49 Acquired absence of other specified parts of digestive tract; Z79.899 Other long term (current) drug therapy; Z98.890 Other specified postprocedural states
CPT/HCPCS: 36415; 80053; 80061; 80074; 81003; 83735; 83880; 84100; 84443; 84484; 85025; 85379; 93005; 95816; 96361; 96374; 99285

== ENCOUNTER → 2018-08-18 | Outpatient (CLI) | payer BC ==
[~2018-08-18] MED LIST: SODIUM CHLORIDE 0.9% 500 ML 500 ML in EMPTY BAG 1 BAG IV PRN; methylPREDNISolone SOD SUCC 1,000 MG in SODIUM CHLORIDE 0.9% 250 ML IVPB NR
[2018-08-18 12:00] VITALS: BP 175/95; PULSE 77; RESP 16; TEMP 97.5
== END ==
LOC: PROCWHC3 11:13
PROVIDERS: ATTEND Hospitalist
DX: G35 Multiple sclerosis (principal)
CPT/HCPCS: 96365; J2930

== ENCOUNTER → 2020-03-14 | Outpatient (CLI) | payer BC ==
--- NOTE | 2020-03-14 14:32 | US ---
EXAMINATION TYPE: US pelvic complete DATE OF EXAM: 03/14/2020 COMPARISON:CT CLINICAL HISTORY: N95.0 POSTMENOPAUSAL BLEEDING. Three episodes post menopausal bleeding; ; endom etrial ablation 10 to 12 years ago, last LMP at TECHNIQUE: Transabdominal (TA) and Transvaginal (TV . Transabdominal sonographic images of the pelv is were acquired. Transvaginal sonographic images were medically necessary to better assess the foll owing anatomy: endometrium Date of LMP: 10 to 12 years ago EXAM MEASUREMENTS: Uterus: 4.2 x 2.0 x 1.7 cm Endometrial Stripe: 4.7mm Right Ovary: 2.0 x 0.8 x 0.6 cm Left Ovary: 1.8 x 1.0 x 1.1 cm 1. Uterus: Anteverted; Nabothian Cyst in cervix = 0.2 x 0.3 x 0.2cm 2. Endometrium: thickness appears wnl for post menopausal patient 3. Right Ovary: wnl 4. Left Ovary: small follicular cyst seen = 0.3 x 0.3 x 0.2cm 5. Bilateral Adnexa: wnl 6. Posterior cul-de-sac: wnl IMPRESSION: Source of bleeding not identified. Endometrium not suspiciously thickened.
== END | disposition home or self-care (01) ==
LOC: RADUSWWP 13:16
PROVIDERS: ATTEND Family Medicine
DX: N95.0 Postmenopausal bleeding (principal)
CPT/HCPCS: 76830; 76856

== ENCOUNTER → 2020-07-07 | Outpatient (CLI) | payer BC ==
--- NOTE | 2020-07-07 18:47 | BD ---
EXAMINATION TYPE: Axial Bone Density DATE OF EXAM: 07/07/2020 COMPARISON: NONE CLINICAL HISTORY: 60-year-old female postmenopausal screening Height: 64.2 IN Weight: 155 LBS RISK FACTORS HISTORY OF: History of Wrist Fracture: RT WRIST AGE 7 Family History of Osteoporosis: YES GRANDMOTHER Active: YES Postmenopausal woman: AGE 47 MEDICATIONS: Additional Medications: VIT D, CELEXA, BABY ASPIRIN, HIGH BLOOD PRESSURE MEDS, POTASSIUM EXAM MEASUREMENTS: Bone mineral densitometry was performed using the [employer] System. Bone mineral density as measured about the Lumbar spine is: ----- L1-L4(G/cm2): 1.119 T Score Values are as follows: ----- L2: -0.3 ----- L3: -0.3 ----- L4: -1.2 ----- L1-L4: -0.5 Bone mineral density BASELINE Bone mineral density about the R hip (g/cm2): 0.823 Bone mineral density about the L hip (g/cm2): 0.861 T Score values are as follows: -----R Neck: -1.5 -----L Neck: -1.3 -----R Total: -1.0 -----L Total: -0.9 Bone mineral density BASELINE IMPRESSION: Osteopenia (T Score between -2.5 and -1). There is slightly increased risk of fracture and the patient may be considered for treatment. Re-Screen 2-5 years. NOTE: T-SCORE=SD OF THE YOUNG ADULT MEAN.
--- NOTE | 2020-07-10 11:02 | MM ---
Reason for exam: screening (asymptomatic). Last mammogram was performed 2 years and 3 months ago. Physical Findings: A clinical breast exam by your physician is recommended on an annual basis and results should be correlated with mammographic findings. MG Screening Mammo w CAD Bilateral CC and MLO view(s) were taken. Prior study comparison: March 29, 2018, bilateral MG 3d diag mammo w/cad [facility]. The breast tissue is heterogeneously dense. This may lower the sensitivity of mammography. There is chronic nodularity bilaterally. No significant changes when compared with prior studies. ASSESSMENT: Benign, BI-RAD 2 RECOMMENDATION: Routine screening mammogram of both breasts in 1 year.
== END | disposition home or self-care (01) ==
LOC: RADMAMWWP 15:54
PROVIDERS: ATTEND Obstetrics & Gynecology
DX: M85.80 Other specified disorders of bone density and structure, unspecified site (principal)
CPT/HCPCS: 77067; 77080

== ENCOUNTER → 2022-03-01 | Outpatient (CLI) | payer BC ==
--- NOTE | 2022-03-02 20:09 | MM ---
Reason for Exam: Screening (asymptomatic). Last mammogram was performed 1 year(s) and 8 month(s) ago. Patient History: Menarche at age 18. First Full-Term at age 20. Postmenopausal. Risk Values: Ami 5 year model risk: 0.9%. NCI Lifetime model risk: 5.0%. Prior Study Comparison: 07/30/2004 Bilateral Screening Mammogram, [facility]. 03/29/2018 Bilateral Diagnostic Mammogram, [facility]. 07/07/2020 Bilateral Screening Mammogram, [facility]. Tissue Density: The breast tissue is heterogeneously dense. This may lower the sensitivity of mammography. Findings: Analyzed By CAD. Chronic nodularity posterior upper outer quadrant both breasts. No significant change from prior exams. Overall Assessment: Benign, BI-RAD 2 Management: Screening Mammogram of both breasts in 1 year. 1. Patient should continue monthly self breast exams. 2. A clinical breast exam by your physician is recommended on an annual basis. 3. This exam should not preclude additional follow-up of suspicious palpable abnormalities. Electronically signed and approved by: Florentin Decker M.D. Radiologist
== END | disposition home or self-care (01) ==
LOC: RADMAMWWP 15:47
PROVIDERS: ATTEND Obstetrics & Gynecology
DX: Z12.31 Encounter for screening mammogram for malignant neoplasm of breast (principal); Z78.0 Asymptomatic menopausal state
CPT/HCPCS: 77063; 77067

== ENCOUNTER → 2022-09-13 | Outpatient (CLI) | payer BC ==
--- NOTE | 2022-09-13 12:43 | CA ---
Exercise Stress Test Report Name: Johnna Rose Exam Date: 09/13/2022 09:42 Exam Location: [facility] Ht (in): 65 Wt (lb): 146 BSA: 1.73 Ordering Phys: Jose Alberto Jain MD Referring Phys: Jose Alberto Jain MD Technologist: Elmo Leigh Age: 62 Gender: F : 1960 Procedure CPT: Indications: R07.89 chest pain ICD-10 Codes: Patient History: CHEST PAIN, EVON, PALPITATIONS, HTN, ELEVATED CHOLESTEROL LEVELS, PRIOR CATH, ASTHMA Medications: CYMBALTA, AMLODIPINE, DELOXOTINE Meds past 24 hrs: Pretest Chest Pain: STRESS TEST Clifford Protocol Exercise Duration (min:sec): 09:[address] Depressions (mm): Angina Score: Ruiz Score: Resting HR (bpm): 70 Peak HR (bpm): 146 Resting BP (mmHg): 167 / 85 Peak BP (mmHg): 210 / 64 MPHR: 160 Target HR: 136 % MPHR: 91 METS: 10.3 Total Dose: Peak Dose: Atropine: Double Product: 50743 BP Response: Stress Termination: MAX EXERTION/TARGET HR Stress Symptoms: NO SYMPTOMS Stress Summary: ECG ANALYSIS Resting ECG: Stress ECG: CONCLUSIONS Excellent exercise tolerance Normal EKG in response to exercise Dr. Alejo Martin MD (Electronically Signed) Final Date: 13 September 2022 12:42
--- NOTE | 2022-09-13 14:22 | NM ---
EXAMINATION TYPE: NM stress cardiolite complete DATE OF EXAM: 09/13/2022 COMPARISON: NONE CLINICAL INDICATION: Female, 62 years old with history of R07.89 chest pain; shortness of breath. His tory of hypertension and hypercholesterolemia along with asthma. TECHNIQUE: After the intravenous administration of 9.6 mCi Tc 99m Sestamibi - Rest images obtained 7 5 minutes post injection. The patient exercised using a PONCHO protocol and 1 minute prior to peak e xercise was injected with 24.2 mCi Tc 99m Sestamibi - Stress images obtained 30 minutes post injectio n. FINDINGS: Targeted heart rate was achieved during performance of the study. Review of stress and rest SPECT trung ges demonstrates no distinct perfusion abnormality. Gated analysis shows normal wall motion with an estimated left ventricular ejection fraction of 68 %. IMPRESSION: No scintigraphic evidence for reversible ischemia
== END | disposition home or self-care (01) ==
LOC: RADNMMAIN 07:45
PROVIDERS: ATTEND Family Medicine
DX: E78.00 Pure hypercholesterolemia, unspecified (principal); I10 Essential (primary) hypertension; R07.89 Other chest pain; R06.02 Shortness of breath
CPT/HCPCS: 93017; 78452; A9500

== ENCOUNTER → 2023-05-09 | Outpatient (CLI) | payer BC ==
--- NOTE | 2023-05-10 08:20 | MM ---
Reason for Exam: Screening (asymptomatic). Last mammogram was performed 1 year(s) and 2 month(s) ago. Patient History: Menarche at age 18. First Full-Term at age 20. Postmenopausal. Risk Values: Ami 5 year model risk: 1.0%. NCI Lifetime model risk: 4.7%. Prior Study Comparison: 03/29/2018 Bilateral Diagnostic Mammogram, [facility]. 07/07/2020 Bilateral Screening Mammogram, [facility]. 03/01/2022 Bilateral MG 3D screening mammo w/cad, [facility]. Tissue Density: The breast tissue is heterogeneously dense. This may lower the sensitivity of mammography. Findings: Analyzed By CAD. There is no suspicious group of microcalcifications or new suspicious mass in either breast. Overall Assessment: Negative, BI-RAD 1 Management: Screening Mammogram of both breasts in 1 year. . Patient should continue monthly self-breast exams. A clinical breast exam by your physician is recommended on an annual basis. This exam should not preclude additional follow-up of suspicious palpable abnormalities. Note on Ami scores and lifetime risk: 1. A Ami score greater than 3% is considered moderate risk. If this is the case, consider specialist referral to assess eligibility for a risk reducing agent. 2. If overall lifetime risk for the development of breast cancer is 20% or higher, the patient may qualify for future screening with alternating mammogram and breast MRI. Electronically signed and approved by: Watson Cavanaugh M.D. Radiologis
== END | disposition home or self-care (01) ==
LOC: RADMAMWWP 12:35
PROVIDERS: ATTEND Family Medicine
DX: Z12.31 Encounter for screening mammogram for malignant neoplasm of breast (principal); Z78.0 Asymptomatic menopausal state
CPT/HCPCS: 77063; 77067

== ENCOUNTER → 2024-03-26 | Outpatient (CLI) | payer BC ==
--- NOTE | 2024-03-26 14:32 | XR ---
EXAMINATION TYPE: XR knee complete LT DATE OF EXAM: 03/26/2024 2:28 PM COMPARISON: None. CLINICAL INDICATION: Female, 64 years old with history of M25.562 Pain left knee, pain TECHNIQUE: Three views of the right knee are obtained. FINDINGS: There is no acute fracture/dislocation evident. The tri-compartment joint spaces appear wi thin normal limits. The overlying soft tissue appears unremarkable. IMPRESSION: There is no acute fracture or dislocation in the right knee. [facility], , 03/26/2024 2:30 PM
== END | disposition home or self-care (01) ==
LOC: RADXRMAIN 14:11
PROVIDERS: ATTEND Family Medicine
DX: M25.562 Pain in left knee (principal)